=== PATIENT | male | born 2000 | race Caucasian/White ===

== ENCOUNTER 2020-09-24 18:39 | Emergency (ER) | payer OTHER ==
[~2020-09-24] VITALS: Ht 185.4 cm; Wt 82.4 kg
[2020-09-24 18:50] VITALS: BP 146/87
[2020-09-24] MEDS ORDERED: IBUPROFEN 600 MG TABLET. PO ONE (19:00)
--- NOTE | 2020-09-24 19:08 | RAD ---
RIGHT HAND, VIEWS 3 RIGHT WRIST, 3 VIEWS Indication: Trauma to hand Hand Findings: Views of the hand demonstrate normal alignment. No acute fracture. Mineralization is normal. There ar e no erosive changes. There is no soft tissue swelling or radiopaque foreign body. Wrist findings: There is no acute fracture or dislocation. No osseous lesion is identified. There is negative ulnar v ariance. The mineralization is normal. There is no soft tissue swelling or radiopaque foreign body IMPRESSION: No acute fracture. Electronically signed by: Damon Hewitt MD (09/24/2020 7:05 PM) ROHAN
--- NOTE | 2020-09-24 19:08 | PHYS DOC ---
Past History Past Medical History: No Pertinent History Past Surgical History: No Surgical History Alcohol Use: None Adult General Chief Complaint Chief Complaint: HAND PROBLEM HPI HPI Patient is an otherwise healthy 19-year-old male who presents with a chief complaint of right hand pain. States he got mad earlier, about 2 hours before coming to the emergency department and punched a wall. States he has pain around his fourth and fifth knuckles and some abrasions. Denies any other injuries. States he is up-to-date on his tetanus vaccinations. Review of Systems Review of Systems Review of systems otherwise unremarkable except noted in HPI Current Medications Current Medications Current Medications Medications (Trade) Dose Ordered Sig/Andrés Start Time Stop Time Status Last Admin Dose Admin Ibuprofen (Motrin) 600 mg 1X ONCE 09/24/20 19:00 09/24/20 19:01 Allergies Allergies Allergies Coded Allergies Type Severity Reaction Last Updated Verified No Known Drug Allergies 09/24/20 No Physical Exam Physical Exam Constitutional: Well developed, well nourished, no acute distress, non-toxic appearance. [] HENT: Normocephalic, atraumatic, bilateral external ears normal, oropharynx moist, no oral exudates, nose normal. [] Skin: Scattered superficial abrasions on knuckles of the right hand. Extremities: Patient has tenderness and swelling about the fourth and fifth MTP. Normal range of motion. Neurovascular exam intact. Neurologic: Alert and oriented X 3, normal motor function, normal sensory function, no focal deficits noted. [] Psychologic: Affect normal, judgement normal, mood normal. [] EKG EKG [] Radiology/Procedures Radiology/Procedures []Hand Findings: Views of the hand demonstrate normal alignment. No acute fracture. Mineralization is normal. There are no erosive changes. There is no soft tissue swelling or radiopaque foreign body. Wrist findings: There is no acute fracture or dislocation. No osseous lesion is identified. There is negative ulnar variance. The mineralization is normal. There is no soft tissue swelling or radiopaque foreign body IMPRESSION: No acute fracture. Electronically signed by: Damon Hewitt MD (09/24/2020 7:05 PM) [facility] Heart Score Risk Factors: Risk Factors: DM, Current or recent (<one month) smoker, HTN, HLP, family history of CAD, obesity. Risk Scores: Risk Factors: DM, Current or recent (<one month) smoker, HTN, HLP, family history of CAD, obesity. Course & Med Decision Making Course & Med Decision Making Patient is a 19-year-old male who presents with right hand pain after punching a wall Vital signs not concerning. Physical exam noted above. Given ibuprofen and ice. Up-to-date on tetanus vaccination per patient. Imaging with no acute osseous abnormalities. Discussed pain management at home. Advised to follow-up with primary care as needed. Gave return precautions to the ED. Patient grateful, verbalized understanding and agreed with plan of discharge. [] Dragon Disclaimer Dragon Disclaimer This electronic medical record was generated, in whole or in part, using a voice recognition dictation system. Departure Departure: Impression: Primary Impression: Right hand pain Disposition: 01 DC HOME SELF CARE/HOMELESS Condition: GOOD Referrals: PCP,UNKNOWN (PCP) Patient Instructions: RICE - Routine Care for Injuries Additional Instructions: Please read all the attached information. Please continue to use ibuprofen, Tylenol and/or ice as needed for pain control at home. Please follow-up with your primary care physician first thing tomorrow to update on ED visit and set up a follow-up as needed. ELBA GRAHAM MD Sep 24, 2020 19:08
== END 2020-09-24 19:40 | disposition home or self-care (01) ==
LOC: ER 18:39
DX: S60.511A Abrasion of right hand, initial encounter (principal); W22.01XA Walked into wall, initial encounter; Y93.89 Activity, other specified; Y92.89 Other specified places as the place of occurrence of the external cause; Y99.8 Other external cause status
CPT/HCPCS: 73110; 73130; 99284

== ENCOUNTER → 2021-09-20 | Outpatient (CLI) | payer OTHER ==
--- NOTE | 2021-09-20 17:01 | RAD ---
Exam: Left foot 3 views INDICATION: Left foot pain, exercise injury TECHNIQUE: Frontal, lateral and oblique views of the left foot Comparisons: None FINDINGS: The cardiomediastinal silhouette and pulmonary vessels are within normal limits. The lung and pleural spaces are clear. IMPRESSION: No acute cardiopulmonary process. Electronically signed by: Noble Stephens MD (09/20/2021 4:59 PM) JENNIFER
== END ==
LOC: RAD 16:19
PROVIDERS: ATTEND Nurse Practitioner Family
DX: M79.672 Pain in left foot (principal)
CPT/HCPCS: 73630